=== PATIENT | male | born 1990 | race Caucasian/White ===

== ENCOUNTER → 2022-07-10 13:40 | Outpatient (CLI) | payer BC, SELFPAY ==
--- NOTE | 2022-07-10 13:46 | XR_ITS ---
FINAL REPORT CLINICAL HISTORY: C/O Rt ventral rib pain @ level of T9-T10. Injured x 1 wk ago, pain on inspiration. Pt states he has old rib fracture. Reviewed, Interpreted and Dictated by Surinder Figueroa III, MD Transcribed by Isabella Ovalle Authenticated and [facility]
== END ==
LOC: RAD 13:41
PROVIDERS: PCP Family Medicine; Visit Provider Orthopaedic Surgery
DX: S22.31XA Fracture of one rib, right side, initial encounter for closed fracture (principal)
CPT/HCPCS: 71101

== ENCOUNTER → 2022-07-17 16:16 | Outpatient (CLI) | payer BC, SELFPAY | PROVIDERS: PCP Nurse Practitioner Family; Visit Provider Nurse Practitioner Family | DX: J02.9 Acute pharyngitis, unspecified (principal) | CPT/HCPCS: 87070 ==

== ENCOUNTER 2024-11-16 19:10 | Emergency (ER) | payer BC, SELFPAY ==
--- OUTSIDE RECORDS SUMMARY | 2020-08-27 09:07 | XMS_ITS | Continuity of Care Document ---
Author Organization [facility] Address [address] [place] [address] [place] [address] Phone Care Team Providers Care Filters Assembler Name Role Phone Unavailable Unavailable Unavailable Advance Directives Directive Yes / No Effective Date File Name No Information Encounters Encounter Description Practice Location Reason(s) For Visit Diagnoses Date Provider Providers Copied on Encounter [facility], [address] [place] [address], [id number], [place] tel:[phone] [facility] Family Medicine No Information No Information Family History Family Member Type Diagnosis Age At Onset No Information Payers Payer name Insurance type Covered libertarian ID Authoriza tion(s) No Information Social History Type Description Quantity Date Captured Comments Alcohol Use Details Unknown Caffeine Use Details Unknown Tobacco Use Status No Information Smoking Status No Information Sex Male Chief Complaint And Reason For Visit No Information Reason For Referral Reason For Referral No Information History Of Present Illness Encounter Date Complaint History Of Prese nt Illness No Information Functional Status Date Functional Assessmen t No Information Instructions Date Instruction Additional Infor mation No Information Assessments Type Assessment Date No Information Patient Care Teams Name Effective Dates (start - stop) Status Members No Information
--- NOTE | 2024-11-16 19:21 | ED_ITS ---
<Statement entered by Marisol Quiñonez DO - 11/16/24 23:38> I was consulted by the JACKIE, and we discussed the complexity of problems being addressed. I approve the treatment and management plan for this patient's care in the emergency department, thus performing a substantial portion of the medical decision making. Marisol Quiñonez DO Discharge Plan Disposition Patient Disposition: Home, Self-Care Condition: Good Prescriptions Prescriptions: No Action amoxicillin-pot clavulanate 875-125 mg tablet 1 tab PO BID 10 Days Qty: 20 0RF cetirizine [All Day Allergy (cetirizine)] 10 mg tablet 10 mg PO DAILY PRN (Reason: allergy symptoms) Qty: 60 3RF ibuprofen 400 mg tablet 400 mg PO Q8H Qty: 90 2RF acetaminophen 325 mg capsule 650 mg PO Q4-6H PRN (Reason: fever or pain) Qty: 90 3RF Referrals Follow up/Referrals: Julia Jerry APRN [Primary Care Provider, Family Practice] - See instructions Juma Posada DO [Staff Physician, Orthopedics] - See instructions Activity Restrictions/Add. Instructions Additional Instructions/Restrictions: Please return to the emergency department with any worsening signs or symptoms, please utilize ibuprofen and Tylenol as needed for symptomatic relief. Please nonweightbearing until orthopedic follow-up please utilize your crutches. Clinical Impressions Clinical Impression: Calcaneus fracture, left Instructions Patient Instructions: DI for Calcaneus Fracture Print Language Print Language: Indian Discharge ED Provider: Marisol Quiñonez General Adult HPI General Chief complaint: Fall Stated complaint: AO 11/14/24, fell, inj left foot Time Seen by Provider: 11/16/24 19:21 Mode of Arrival: Ambulatory Source of Information: Patient Limitations: No Limitations History of Present Illness HPI narrative: 33-year-old male presents to the emergency department accompanied by his mother for a left foot/ankle/heel pain after injury 2 days ago, patient states he was taking a picture of a deck , when he missed the step and fell down approximately 10 steps , missing every step landing on his left and right foot, the left foot/ankle taking most of the impact, he has had pain limited range of motion, with decreased ambulation/difficulty ambulation on the affected extremity ever since the injury, he is utilize Motrin today at approximately 3 PM, with some relief to his symptomatology as well as ice, he has noted some swelling, no other upper or lower extremity injury, no numbness or tingling, no radicular type symptomatology, no fever chills chest pain shortness of breath nausea vomiting constipation diarrhea no back pain no saddle anesthesia, no urinary bladder or bowel dysfunction. Patient is a non-smoker, denies any alcohol or drug use, has no other real relevant past medical history takes no other medications at home. Please note that above description of symptoms, in this electronic medical record under categorization of recalled from ER triage doctor by RN are reflective of an initial nursing assessment, however, is not reflective of my full history and physical exam that was personally taken and clarified. Consequentially, this preceding description of symptoms, which may include the patient's categorized chief complaint in the EMR, do not reflect my personal clinical impression, and the ultimate description of history of present illness and patient stated complaints should be deferred to this section of the note. Unless stated otherwise or congruent with this section of the note, additional signs, symptoms, or incongruence should be interpreted as inaccurate with my clinical impression. Onset (ago): day(s) Related Data Previous Rx's ?Medication ?Instructions ?Recorded acetaminophen 325 mg capsule 650 mg (2 x 325 mg) PO Q4 -6H PRN 07/17/22 fever or pain #90 caps amoxicillin 875 mg-potassium 1 tab PO BID 10 days #20 tabs 07/17/22 clavulanate 125 mg tablet cetirizine 10 mg tablet (All Day 10 mg PO DAILY PRN al lergy 07/17/22 Allergy (cetirizine)) symptoms #60 tabs ibuprofen 400 mg tablet 400 mg PO Q8H #90 tabs 07/17 Allergies Allergy/AdvReac Type Severity Reaction Status Date / Time No Known Allergies Allergy Verified 07/17/22 11:31 [facility] Disclaimer: The information contained in this section may have been updated after the patient was seen, as this information can be updated by other users. Medical History No pertinent past medical history Surgical History H/O knee surgery bilateral meniscus repair Social History (Reviewed 07/17/22 @ 11:31 by EDUARDO Freeman Smoking Status: Never smoker alcohol intake: never substance use type: denies use counseling provided: none current occupational status: employed Travel in the last 8 weeks?: None Have you lived/traveled outside US in past 30 days?: No Contact w/someone who lives/traveled outside US past 30 days?: No Exposure to someone with infectious disease in past 14 days?: No Do you have a fever (greater than 100.4 F or 38 C)?: No Have you tested positive for COVID-19?: No Exposed to someone with COVID-19 in past 14 days?: No Do you have a sore throat?: No Do you have a cough?: No Do you have any weakness?: No Do you have any diarrhea?: No Are you experiencing any unusual bleeding?: No Do you have any muscle aches/pain?: No Do you have any abdominal pain?: No Are you experiencing loss of taste or smell?: No ROS Obtained: Yes All systems reviewed & no additional complaints except as documented Physical Exam General General appearance: alert and in no apparent distress Head Head exam: atraumatic and normocephalic Eye Eye exam: Present PERRL and EOMI ENT ENT exam: Present mucous membranes moist Neck Neck exam: Present normal inspection Chest Chest inspection: Present normal inspection and symmetric chest wall rise Respiratory Respiratory exam: Present normal lung sounds bilaterally; Absent respiratory distress Cardiovascular Cardiovascular exam: Present regular rate and normal rhythm Abdominal Exam Abdominal exam: Present soft; Absent tenderness Extremities Exam Extremities exam: Present normal inspection, tenderness and other (No obvious open fracture deformity, there is pain to palpation over the dorsal aspect of the foot as well as plantar aspect of the foot, patient has good strength with plantarflexion and dorsiflexion, there is pain around the calcaneus/heel region, Achilles appears intact, otherwise neurovascularly ) Neurological Exam Neurological exam: Present alert and oriented X3 Psychiatric Psychiatric exam: Present normal affect Skin Skin exam: Present warm and dry Medical Decision Making Medical Records Medical records reviewed: Yes I reviewed the patient's medical records. Screening: Per USPSTF and CDC recommendations, given the prevalence of disease in our region, it is our hospital?s policy to screen for HIV and viral Hepatitis for all patients aged 18 and over and those with ongoing risk factors. Neo Inquiry Pt receiving controlled substance: No Neo was queried for this patient: No Vital Signs: 11/16/24 19:24 11/16/24 19:29 Temperature 98.1 F Temperature Source Oral Pulse Rate [Right Radial] 85 Respiratory Rate 16 Blood Pressure [Right Arm] 150/69 H Blood Pressure Mean [Right Arm] 96 Blood Pressure Source [Right Arm] Manual Cuff/ Palpation Blood Pressure Position [Right Arm] Sitting 02 Sat by Pulse Oximetry 98 98 Oxygen Delivery Method Room Air Room Air Lab Data Lab results reviewed: Yes I reviewed the patient's lab results. Orders (Tests/Meds): ED MEDICATIONS Discontinued Medications Generic Name Dose Route Start Last Admin Trade Name Lorne PRN Reason Stop Dose Admin Acetaminophen 1,000 mg 11/16/24 19:38 11/16/24 19:42 Acetaminophen 500mg Tab PO 11/16/24 19:39 1,000 mg ONCE ONE Administration ORDERS Category Date Time Status CT foot LT wo con Stat Cat Scan 11/16/24 20:39 Completed Foot XR left minimum 3 views [XR foot LT min 3V] Stat Exams 11/16/24 19:35 Completed XR ankle LT min 3V Stat Exams 11/16/24 19:36 Completed Medical Decision Narrative: 33-year-old male presents emerged part with left foot/ankle pain/heel pain after fall 2 days ago, differential diagnose include but not limited to, foot sprain/strain, ankle sprain/strain, ankle fracture, calcaneal fracture, talus fracture, other foot fracture, soft tissue injury among others. I discussed this patient's case with the attending physician Dr. Quiñonez Will obtain plain films of the patient's left ankle and left foot for further evaluation/characterization, will give 1000 g p.o. Tylenol for pain. I reviewed the patient's left foot x-ray, and left ankle x-ray along with corresponding radiologic reports, no fracture, if pain persist suggest splinting and follow-up radiographs in 7 to 10 days. Patient still has quite significant pain and pain limiting with ambulation due to high mechanism fall foot injury, will obtain CT of the foot without contrast to rule out calcaneal fracture in the setting of fall from height injury. I reviewed the patient's CT foot without contrast along with the corresponding radiological report, there is a calcaneal fracture present. I discussed this patient's case with the on-call orthopedic physician Dr. Posada at approximately 9:28 PM, I discussed reviewed the patient's imaging studies with him he recommends bulky Santos dressing and nonweightbearing with crutches until orthopedic follow-up. Will give 15 mg IV Toradol for pain, I along with physician assistant attorney general student and ER reactor technician performed splint in the emergency department, patient tolerated procedure well, neurovascular intact post splinting, bulky Santos dressing with posterior splint was applied, will give patient crutches and nonweightbearing until orthopedic follow-up. Patient and family voiced understanding and agreed with the current treatment plan/discharge plan. Offered narcotic medication for pain, patient denied, would like to pursue anti- inflammatory medication I think this is appropriate he states this has worked previously. Recommend ibuprofen Tylenol rest and follow-up with orthopedic physician. Strict ED return precautions given. Procedures Orthopedic Splinting/Casting Injury #1: Side: left Lower Extremity Injury Location: lower leg and foot Lower Extremity Immobilizer: posterior splint, Santos dressing and Imtiaz wrap Other Orthopedic Equipment: crutches Post Cast/Splinting Neuro Status: intact Post Cast/Splinting Vasc Status: intact Critical Care Critical Care Time Critical Care Time: No
[2024-11-16 19:24] VITALS: BP 150/69; PULSE 85; RESP 16; TEMP 36.7; O2SAT 98; BMI 27.0
--- OUTSIDE RECORDS SUMMARY | 2024-11-16 19:24 | XMS_ITS | Clinical Summary ---
Author Organization [facility] Address [address] [place] [address] Care Team Providers Care Printing Machine Mechanic Name Role Phone Unavailable Primary Care Provider Unavailabl e Social History Tobacco Use Types Packs/Day Years Used Date Smoking Tobacco: Never Assessed Abuse Screen Answer Date Recorded Unsafe at Home or Work/School Not on file Feels Threatened by Someone? Not on file Does Anyone Keep You from Co ntacting Others or Doint Things Outside the Home? Not on file 01/08/2023 Physical Sign of Abuse Present Not on file 1 Housing Stability Answer Date Recorded Current Living Arrangements Not on file 12/27 Potentially Unsafe Housing Conditions Not on moon e 01/08/2023 Family and Community Support Answer Soto e Recorded Help with Day-to-Day Activities Not on file 01/08/2023 Lonely or Isolated Not on file 01/08/2023 Employment Answer Date Recorded Do you want help finding or keeping work or a josefa b? Not on file 01/08/2023 Disabilities Answer Date Recorded Concentrating, Remembering, or Making Decisions Difficulty Not on file 01/08/2023 Doing Errands Independently Difficulty Not on fi le 01/08/2023 Education Answer Date Recorded Help with school or training? Not on file Preferred Language Not on file 01/08/2023 Sex and Gender Information Value Date Recorded Sex Assigned at Not on file Legal Sex Male 1:24 PM EDT Gender Identity Not on file Sexual Orientation Not on file Plan of Treatment Health Maintenance Due Date Last Done Comments TDAP/TD VACCINES (1 - Tdap) 11/30/2011 ANNUAL PHYSICAL 08/27/2022 HEPATITIS C SCREENING 08/27/2022 COVID-19 Vaccine (2023-2 5 season) 2023 INFLUENZA VACCINE 12/27/2024 Pneumococcal Vaccine 0-49 Aged Out No longer eligible based on patient's age to complete this topic
[2024-11-16 19:29] VITALS: O2SAT 98
--- NOTE | 2024-11-16 19:35 | XR_ITS ---
PROCEDURE INFORMATION: Exam: XR Left Foot Exam date and time: 11/16/2024 7:43 PM Age: 33 years old Clinical indication: Pain; Foot; Left; Additional info: Left foot pain after fall TECHNIQUE: Imaging protocol: Radiologic exam of the left foot. Views: 3 or more views. COMPARISON: No relevant prior studies available. FINDINGS: Bones/joints: No acute fracture. No dislocation. Soft tissues: Unremarkable. IMPRESSION: No fracture. If pain persists, suggest splinting and follow up radiographs in 7-10 days.
--- NOTE | 2024-11-16 19:36 | XR_ITS ---
PROCEDURE INFORMATION: Exam: XR Left Ankle Exam date and time: 11/16/2024 7:43 PM Age: 33 years old Clinical indication: Pain; Ankle; Left; Additional info: Left foot/heel pain after fall TECHNIQUE: Imaging protocol: Radiologic exam of the left ankle. Views: 3 or more views. COMPARISON: No relevant prior studies available. FINDINGS: Bones/joints: No acute fracture. No dislocation. No significant joint effusion. Soft tissues: Unremarkable. IMPRESSION: No fracture. If pain persists, suggest splinting and follow up radiographs in 7-10 days.
[2024-11-16] MEDS: ACETAMINOPHEN 500MG TAB 1000 MG PO (19:42)
--- NOTE | 2024-11-16 19:43 | PC.NURSE ---
radiology at bedside
--- NOTE | 2024-11-16 20:39 | CT_ITS ---
PROCEDURE INFORMATION: Exam: CT Left Lower Extremity Without Contrast, Foot Exam date and time: 11/16/2024 8:51 PM Age: 33 years old Clinical indication: Pain; Foot; Left; Additional info: R/O calcaneal fracture, fall from height TECHNIQUE: Imaging protocol: CT of the left lower extremity without contrast was performed. Exam focused on the foot. Radiation optimization: All CT scans at this facility use at least one of these dose optimization techniques: automated exposure control; mA and/or kV adjustment per patient size (includes targeted exams where dose is matched to clinical indication); or iterative reconstruction. COMPARISON: CR XR FOOT LT MIN 3V 11/16/2024 7:43 PM FINDINGS: Bones/joints: Minimally displaced fracture body/tuberosity of calcaneus. No dislocation. Soft tissues: Minimal soft tissue swelling about hindfoot. IMPRESSION: Calcaneal fracture.
--- NOTE | 2024-11-16 20:54 | PC.NURSE ---
patient to radiology for CT scans
[2024-11-16] MEDS: KETOROLAC 30MG/ML VIAL 15 MG IV (22:09)
--- NOTE | 2024-11-16 22:20 | PC.NURSE ---
crutches given to patient, education provided. no further questions from patient
[2024-11-16 22:21] VITALS: BP 140/77; PULSE 57; RESP 18; TEMP 36.8; O2SAT 100
== END 2024-11-16 22:26 | disposition home or self-care (01) ==
PROVIDERS: Emergency Provider Student in an Organized Health Care Education/Training Program; PCP Nurse Practitioner Family
DX: S92.002A Unspecified fracture of left calcaneus, initial encounter for closed fracture (principal); M79.672 Pain in left foot; W10.8XXA Fall (on) (from) other stairs and steps, initial encounter
CPT/HCPCS: 29515; 73610; 73630; 73700; 96374; 99284; J1885

== ENCOUNTER 2024-12-18 08:45 | Outpatient (CLI) | payer BC, SELFPAY ==
--- OUTSIDE RECORDS SUMMARY | 2020-08-27 09:07 | XMS_ITS | Continuity of Care Document ---
Author Organization [facility] Address [address] [place] [address] [place] [address] Phone Care Team Providers Care Trip Motor Operator Name Role Phone Unavailable Unavailable Unavailable Advance Directives Directive Yes / No Effective Date File Name No Information Encounters Encounter Description Practice Location Reason(s) For Visit Diagnoses Date Provider Providers Copied on Encounter [facility], [address] [place] [address], [id number], [place] tel:[phone] [facility] No Information No Information Family History Family Member Type Diagnosis Age At Onset No Information Payers Payer name Insurance type Covered green party ID Authoriza tion(s) No Information Social History [...]
--- NOTE | 2024-12-18 08:45 | XR_ITS ---
FINAL REPORT CLINICAL HISTORY: f/u lt heel fx COMPARISON: 11/17/2024 FINDINGS: LEFT FOOT Three views of the left foot demonstrate no acute fracture or dislocation. There is curvilinear sclerosis along the posterior inferior calcaneus most consistent with healing fracture. No displaced fracture or new abnormality is identified. The visualized joint spaces are normally aligned. The soft tissues are unremarkable. IMPRESSION: Curvilinear sclerosis along the posterior inferior calcaneus consistent with healing fracture. Reviewed, Interpreted and Dictated by Jody Torres MD Transcribed by Fartun Lopes Authenticated and [facility]
--- OUTSIDE RECORDS SUMMARY | 2024-12-18 09:14 | XMS_ITS | Clinical Summary ---
Author Organization [facility] Address [address] [place] [address] Care Team Providers Care Athletic Shoe Designer Name Role Phone Unavailable Primary Care Provider [...] ANNUAL PHYSICAL 08/27/2022 HEPATITIS C SCREENING 08/27/2022 INFLUENZA VACCINE 10/27/2024 Pneumococcal Vaccine 0-49 Aged Out No longer eligible based on patient's age to complete this topic
== END 2024-12-18 23:59 | disposition home or self-care (01) ==
LOC: RAD 08:45
PROVIDERS: Visit Provider Physician Assistant
DX: S92.045D Nondisplaced other fracture of tuberosity of left calcaneus, subsequent encounter for fracture with routine healing (principal); X58.XXXD Exposure to other specified factors, subsequent encounter
CPT/HCPCS: 73630